=== PATIENT | male | born 1950 | race Caucasian/White ===

== ENCOUNTER 2018-05-10 06:37 | Inpatient (IN) | payer OTHER, MEDICARE, BC ==
[2018-05-10] MEDS ORDERED: DESFLURANE 15 MIN (07:00)
[2018-05-10] MEDS ORDERED: GLYCOPYRROLATE 0.4 MG INJ (07:47)
[2018-05-10] MEDS ORDERED: NEOSTIGMINE 3 MG/3 ML SYRINGE (07:47)
[2018-05-10] MEDS ORDERED: CEFAZOLIN 1 GM INJ (07:47)
[2018-05-10] MEDS ORDERED: ROCURONIUM 50 MG INJ (07:47)
[2018-05-10] MEDS ORDERED: PROPOFOL 20 ML (07:47)
[2018-05-10] MEDS ORDERED: MIDAZOLAM 1 MG/ML 2 ML INJ (07:48)
[2018-05-10] MEDS ORDERED: ONDANSETRON 4 MG INJ (07:49)
[2018-05-10] MEDS ORDERED: FENTAnyl 50 MCG/ML VIAL (07:49)
[2018-05-10] MEDS ORDERED: DEXAMETHASONE 4 MG/ML 5 ML INJ (07:49)
[2018-05-10] MEDS ORDERED: ROPIVACAINE 0.5 % 30 ML VIAL (07:51)
[2018-05-10] MEDS: DEXAMETHASONE 1 MG TAB PO (08:07)
[2018-05-10] MEDS: GABAPENTIN 300 MG CAP PO ×3 (08:07→21:43)
[2018-05-10] MEDS ORDERED: SUGAMMADEX SODIUM 200 MG/2 ML VIAL IV (08:30)
[2018-05-10] MEDS ORDERED: METOCLOPRAMIDE 10 MG INJ (08:30)
[2018-05-10] MEDS ORDERED: BUPIVACAINE 0.5% (SDV) 30 ML, morphine SULFATE (PF) 8 MG, EPINEPHrine 0.3 MG, KETOROLAC... IRR (09:00)
[2018-05-10] MEDS ORDERED: CEFAZOLIN 2 GM/50 ML (PMX) 50 ML IVPB (09:00)
[2018-05-10] MEDS ORDERED: FENTAnyl 50 MCG/ML VIAL IV ×3 (09:30)
[2018-05-10] MEDS ORDERED: ONDANSETRON 4 MG INJ IV ×2 (09:30→11:00)
[2018-05-10] MEDS ORDERED: EPHEDrine SULFATE 50 MG/5 ML SYG IV (09:30)
[2018-05-10] MEDS ORDERED: HYDROmorphONE 1 MG/5 ML IV SYRINGE IV ×3 (09:30)
[2018-05-10] MEDS ORDERED: OXYCODONE/ACETAMINOPHEN (5/325) TAB PO ×2 (09:30)
[2018-05-10] MEDS ORDERED: TRIMETHOBENZAMIDE 100 MG/ML VIAL IM (09:30)
[2018-05-10] MEDS ORDERED: LABETALOL HCL 20MG INJ IV (09:30)
[2018-05-10] MEDS ORDERED: IPRATROPIUM (NEB) 0.5 MG/2.5 ML AMP HHN (09:30)
[2018-05-10] MEDS ORDERED: MIDAZOLAM 1 MG/ML 2 ML INJ IV (09:30)
[2018-05-10] MEDS ORDERED: hydrALAzine 20 MG INJ IV (09:30)
[2018-05-10] MEDS ORDERED: ALBUTEROL 0.083% (NEB) 2.5 MG/3 ML AMP HHN (09:30)
[2018-05-10] MEDS ORDERED: DIPHENHYDRAMINE 50 MG INJ IV ×2 (09:30→11:00)
[2018-05-10] MEDS ORDERED: MEPERIDINE 25 MG INJ IV (09:30)
[2018-05-10] MEDS ORDERED: THROMBIN 5000 UNIT VIAL (09:36)
[2018-05-10] MEDS ORDERED: CA CHLORIDE (GM) 10% 10 ML INJ (09:36)
[2018-05-10] MEDS: POLYMYXIN/BACITRACIN 1L IRRIG (09:36)
[2018-05-10] MEDS ORDERED: NACL 0.9% 3 ML SYG IV (11:00)
[2018-05-10] MEDS ORDERED: oxyCODONE 5 MG TAB PO ×3 (11:00)
[2018-05-10] MEDS ORDERED: HYDROmorphONE 1 MG/ML SYG IV (11:00)
[2018-05-10] MEDS ORDERED: MAGNESIUM HYDROXIDE 30ML CUP PO (11:00)
[2018-05-10] MEDS ORDERED: LOPERAMIDE 2 MG CAP PO (11:00)
[2018-05-10] MEDS: CEFAZOLIN 1 GM/50 ML (PMX) 50 ML IVPB ×2 (12:08→19:37)
[2018-05-10] MEDS: TRANEXAMIC ACID 1,000 MG in SOD CHLORIDE 0.9% 100 ML IVPB (12:27)
[2018-05-10] MEDS: TRANEXAMIC ACID 1,000 MG in DEXTROSE 5% 100 ML IVPB ×2 (12:39→12:40)
[2018-05-10] MEDS: DEXAMETHASONE 2 MG TAB PO ×2 (13:19→17:47)
[2018-05-10] MEDS: ACETAMINOPHEN 500 MG TAB PO ×2 (13:20→17:47)
[2018-05-10] MEDS: KETOROLAC 15 MG INJ IV (19:41)
[2018-05-10] MEDS: SENNA/DOCUSATE NA (8.6MG/50MG) TAB PO (21:01)
[2018-05-10] MEDS: MONTELUKAST 10 MG TAB PO (21:01)
[2018-05-10] MEDS: ATORVASTATIN 10 MG TAB PO (21:01)
[2018-05-10] MEDS: ZOLPIDEM 5 MG TAB PO (21:36)
[2018-05-11] MEDS: ACETAMINOPHEN 500 MG TAB PO ×2 (00:51→06:05)
[2018-05-11] MEDS: DEXAMETHASONE 2 MG TAB PO ×2 (00:51→06:05)
[2018-05-11] MEDS: CEFAZOLIN 1 GM/50 ML (PMX) 50 ML IVPB (03:26)
[2018-05-11] MEDS: PANTOPRAZOLE SODIUM 20 MG TABEC PO (06:05)
[2018-05-11] MEDS: SENNA/DOCUSATE NA (8.6MG/50MG) TAB PO (08:27)
[2018-05-11] MEDS: TAMSULOSIN (SR) 0.4 MG CAP PO (08:27)
[2018-05-11] MEDS: metFORMIN 500 MG TAB PO (08:27)
[2018-05-11] MEDS: SERTRALINE 50 MG TAB PO (08:27)
[2018-05-11] MEDS: GABAPENTIN 300 MG CAP PO (08:27)
[2018-05-11] MEDS: METOPROLOL (XL) 25 MG TAB PO (08:28)
[2018-05-11] MEDS: BENAZEPRIL 40 MG TAB PO (08:28)
== END 2018-05-11 10:30 | disposition home or self-care (01) | DRG 483 ==
LOC: REC 06:37 → MS1 12:45
PROVIDERS: Orthopaedic Surgery
PROC: 0RRJ00Z Replacement of Right Shoulder Joint with Reverse Ball and Socket Synthetic Substitute, Open Approach (ICD-10-PCS; principal; 2018-05-10 09:17)
PROC: 0PB90ZZ Excision of Right Clavicle, Open Approach (ICD-10-PCS; 2018-05-10 09:17)
DX: M19.011 Primary osteoarthritis, right shoulder (principal); M75.101 Unspecified rotator cuff tear or rupture of right shoulder, not specified as traumatic; I10 Essential (primary) hypertension; E78.5 Hyperlipidemia, unspecified; E11.9 Type 2 diabetes mellitus without complications; K21.9 Gastro-esophageal reflux disease without esophagitis; J45.909 Unspecified asthma, uncomplicated; N40.0 Benign prostatic hyperplasia without lower urinary tract symptoms; F41.9 Anxiety disorder, unspecified; Z96.642 Presence of left artificial hip joint; Z79.82 Long term (current) use of aspirin; Z79.84 Long term (current) use of oral hypoglycemic drugs; Z87.891 Personal history of nicotine dependence
CPT/HCPCS: 73030-RT; 82962; 86999; 88304; 88311; 97166